=== PATIENT | female | born 1975 | race Caucasian/White ===

== ENCOUNTER 2021-03-04 15:51 | Emergency (ER) | payer OTHER ==
[~2021-03-04] VITALS: Ht 162.6 cm; Wt 86.2 kg
--- NOTE | 2021-03-04 16:10 | NUR ---
The patient is c/o dizziness, nausea vomiting x 1 day. Denies pain. In room air and denies SOB. Respiration regular and unlabored. Will continue to monitor the patient.
[2021-03-04] MEDS ORDERED: MECLIZINE HCL 12.5 MG TABLET PO ONE (16:30)
[2021-03-04] MEDS ORDERED: ONDANSETRON HCL/PF 4 MG/2 ML VIAL IVP ONE (16:30)
[2021-03-04] MEDS ORDERED: MECLIZINE HCL 25 MG TABLET ONE (16:39)
[2021-03-04] MEDS ORDERED: ONDANSETRON HCL/PF 4 MG/2 ML VIAL ONE (16:39)
[2021-03-04 16:46] LABS: HEMOGLOBIN 12.4 g/dL (11.5-14.8); MEAN CORPUSCULAR HGB CONC 33 g/dl (31.0-36.0); MEAN CORPUSCULAR VOLUME 86 fL (82-100); RED BLOOD CELL COUNT(AUTO) 4.39 MIL/uL (4.0-5.2)
[2021-03-04 16:49] LABS: BASOPHILS % (AUTO) 0.3 % (0.0-2.0); EOSINOPHILS % (AUTO) 1.1 % (0.0-6.0); HEMATOCRIT 38 % (33-45); LYMPHOCYTES # (AUTO) 1.6 K/uL (0.8-4.8); LYMPHOCYTES % (AUTO) 18.6 % (20.0-44.0); MONOCYTES # (AUTO) 0.5 K/uL (0.1-1.30); MONOCYTES % (AUTO) 5.8 % (2.0-12.0); NEUTROPHILS # (AUTO) 6.2 K/uL (1.8-8.9); NEUTROPHILS % (AUTO) 74.2 % (43.0-81.0); PLATELET COUNT (AUTO) 274 K/uL (150-450); WHITE BLOOD COUNT (AUTO) 8.4 K/uL (4.3-11.0)
--- NOTE | 2021-03-04 16:52 | NUR ---
THE PATIENT STATES THAT SHE DOES NOT FEEL URINATING AT THIS TIME. WILL TRY AGAIN LATER.
--- NOTE | 2021-03-04 16:59 | NUR ---
CT SCAN PENDING . HCG NOT READY @[id number]
[2021-03-04 17:10] LABS: ALANINE AMINOTRANSFERASE 137 U/L (12-78); ALBUMIN 3.8 g/dL (3.4-5.0); ALKALINE PHOSPHATASE 51 U/L (46-116); ASPARTATE AMINOTRANSFERASE 76 U/L (15-37); BILIRUBIN,DIRECT 0.1 mg/dL (0.0-0.2); BILIRUBIN,TOTAL 0.5 mg/dL (0.2-1.0); CALCIUM, SERUM 7.7 mg/dL (8.5-10.1); CARBON DIOXIDE 25 mmol/L (21-32); CHLORIDE 102 mmol/L (98-107); CREATININE 0.9 mg/dL (0.6-1.3); GLUCOSE 105 mg/dL (74-106); POTASSIUM 3.7 mmol/L (3.5-5.1); SODIUM SERUM 138 mmol/L (136-145); TOTAL PROTEIN, SERUM 7.4 g/dL (6.4-8.2); UREA NITROGEN, BLOOD 10 mg/dL (7-18)
--- NOTE | 2021-03-04 17:49 | NUR ---
urine is collected and sent to the lab
[2021-03-04 18:02] LABS: BACTERIA,URINE Rare /HPF (None Seen); BILIRUBIN,URINE Negative (NEGATIVE); COLOR,URINE YELLOW (YELLOW); LEUKOCYTE ESTERASE ,URINE Negative (NEGATIVE); NITRITE, URINE Negative (NEGATIVE); PH,URINE 5.5 (5.0-8.0); PROTEIN,URINE Negative (NEGATIVE); SQUAMOUS EPITHELIAL CELL,UR Few /HPF (None Seen); UGLUCOSE Negative (NEGATIVE); UROBILINOGEN,URINE 0.2 EU/dL (0.2); WBC,URINE NONE SEEN /HPF (0-3)
[2021-03-04] MEDS ORDERED: MECL-159 PO (18:53)
--- NOTE | 2021-03-04 19:22 | NUR ---
IV removed. Catheter intact and site benign. Pressure and 4x4 applied to site. No bleeding noted.Patient discharged to home in stable condition. Written and verbal after care instructions given. Patient verbalizes understanding of instruction.
[2021-03-04 19:23] VITALS: BP 137/84
== END 2021-03-04 19:23 | disposition home or self-care (01) ==
LOC: ER 15:55
DX: R42 Dizziness and giddiness (principal); Z79.899 Other long term (current) drug therapy
CPT/HCPCS: 36415; 70450; 80048; 80076; 81001; 84484; 84703; 85025; 93005; 96374; 99285; J2405; J8597